=== PATIENT | female | born 1995 | race Caucasian/White ===

== ENCOUNTER → 2016-04-03 | Outpatient (CLI) | payer MEDICAID ==
--- NOTE | 2016-04-03 12:29 | REP ---
Obstetric sonography: History: Supervision of for anatomy. Findings: Scanning through the gravid uterus demonstrates a viable single intrauterine gestation in a cephalic lie. motion is observed and heart rate is recorded at 144 beats per minute. A posterior grade 1 placenta is seen without evidence of previa. Amniotic fluid is subjectively normal. Closed cervical length is 4.6 cm. No extrauterine abnormality is observed. There has been appropriate interval growth. No anomaly is seen. Face and profile and four-chamber heart and left ventricular outflow tract views are less than optimally seen due to position. The following additional anatomic structures are identified and felt to be sonographically unremarkable: cranium, choroid plexus, cavum, cerebellum and posterior fossa, lungs, right ventricular outflow tract view, diaphragm, left-sided stomach, abdominal wall cord insertion, three-vessel umbilical cord, kidneys and bladder, spine, upper and lower extremities. Biometry chart: BPD 4.2 cm 18 weeks 6 days Head circumference 16.1 cm 18 weeks 6 days Abdominal circumference 12.8 cm 18 weeks 3 days Femur length 2.8 cm 18 weeks 4 days Humeral length 2.8 cm 18 weeks 6 days HC/AC ratio normal 1.26. Cephalic index normal 0.72. Estimated weight 245 grams, 0 pounds 8 ounces, 56th percentile for 18 weeks 2 days. Impression: Viable single intrauterine gestation at 18 weeks 5 days by today's composite criteria. Expected gestational age estimate based on prior sonography is 18 weeks 2 days. EWELINA by prior sonography September 02, 2016. Face and profile, four-chamber heart and left ventricular outflow tract views less than optimally seen due to position. Signed by Fabian Wilhelm MD 04/03/2016 02:57 P
== END ==
LOC: M RAD 10:56
PROVIDERS: ATTEND Advanced Practice Midwife
DX: Z36 Encounter for antenatal screening of mother (principal)

== ENCOUNTER → 2016-04-25 | Outpatient (CLI) | payer MEDICAID ==
--- NOTE | 2016-04-25 15:45 | REP ---
Obstetric sonography: History: Supervision of , followup anatomy. Comparison study February 10, 2016. Findings: Scanning through the gravid uterus demonstrates a viable single intrauterine gestation in a breech lie. motion is observed and heart rate is recorded at 153 beats per minute. A posterior grade 0 placenta is seen without evidence of previa or abruption. Amniotic fluid is subjectively normal. Closed cervical length is 3.0 cm, measured transabdominally. No extrauterine abnormality is observed. There has been appropriate interval growth. There is a 4 mm echogenic focus in the right side of the abdomen, in or adjacent to the inferior margin of the liver at the level of the tadeo hepatis. This appears to be separate from the gallbladder. Left and right ventricular cardiac outflow tract views are less than optimally seen due to position. The following additional anatomic structures are identified and felt to be sonographically unremarkable: cranium, choroid plexus, cavum, cerebellum and posterior fossa, face and profile, lungs, four-chamber heart, diaphragm, left-sided stomach, abdominal wall cord insertion, three-vessel umbilical cord, kidneys and bladder, spine, upper and lower extremities. Biometry chart: BPD 4.9 cm = 20 weeks 6 days HC 19.8 cm = 22 weeks 0 days AC 17.5 cm = 22 weeks 3 days FL 3.6 cm = 21 weeks 3 days HL 3.6 cm = 22 weeks 3 days CD 2.2 cm = 20 weeks 4 days HC/AC ratio normal 1.13. Cephalic index 0.67 (0.70-0.86. Estimated weight 466 grams, 1 pound 0 ounces, 65th percentile for 21 weeks 3 days. Impression: Viable single intrauterine gestation at 21 weeks 4 days by today's composite sonographic criteria. Expected gestational age estimate based on prior sonography is 21 weeks 3 days. EWELINA by prior sonography September 02, 2016. There is a 4 mm echogenic focus near the tadeo hepatis in the right upper quadrant of uncertain significance. Consider follow-up. Outflow tract views less than optimally seen due to position. Signed by Fabian Wilhelm MD 04/25/2016 03:59 P
== END ==
LOC: M RAD 12:51
PROVIDERS: ATTEND Advanced Practice Midwife
DX: Z36 Encounter for antenatal screening of mother (principal)

== ENCOUNTER → 2016-05-13 | Outpatient (CLI) | payer MEDICAID ==
--- NOTE | 2016-05-13 15:24 | REP ---
Clinical: Anatomical evaluation. Comparison: 04/25/2016 . Findings: Examination demonstrates a single live intrauterine in breech presentation. motion is identified by technologist. Placenta is noted posteriorly and grade at zero without evidence for placenta previa or abruption. Amniotic fluid volume is normal. Cervix measures the 3.4 cm in length and appears closed. No evidence for nuchal cord. Gestational age by LMP 24 weeks 0 days with EWELINA 09/02/2016 . Gestational age by current measurements 24 weeks 6 days with EWELINA 08/27/2016 . FHR equals 136 beats per minute. Estimated weight 708 grams ( 61st percentile). Current examination demonstrates HC measuring 24.1 cm (>95%). Anatomical assessment demonstrates normal structures including cranium, choroid plexus, cavum, cerebellum/posterior fossa, facial features, lungs, four-chamber heart/ventricular outflow tracts, diaphragm, stomach, cord insertion/three-vessel cord, kidneys/bladder, and extremities. A small 4 mm echogenic focus in the right upper quadrant in the region of the tadeo hepatis is again noted and unchanged. Followup ultrasound may be warranted. No further abnormalities are identified to Impression: 1. Breech presentation demonstrating appropriate interval growth. 2. A 4 mm echogenic focus in the right upper quadrant unchanged without further abnormalities and may benefit from ultrasound. Estimated weight is normal. 3. However the head circumference measures greater than 95th percentile. Signed by Jorge Davies MD 05/13/2016 03:15 P
== END ==
LOC: M RAD 12:57
PROVIDERS: ATTEND Advanced Practice Midwife
DX: Z36 Encounter for antenatal screening of mother (principal)

== ENCOUNTER → 2016-05-29 | Outpatient (CLI) | payer MEDICAID ==
[2016-06-01 00:06] LABS: CYTOMEGALOVIRUS IgG ANTIBODY <0.60 U/mL (0.00-0.59); HSV TYPE I IgM AB <1:10 titer (<1:10); HSV TYPE II IgM ABY <1:10 titer (<1:10); TOXOPLASMA IgG ABY <3.0 IU/mL (0.0-7.1)
== END ==
LOC: M SMT 10:11
PROVIDERS: ATTEND Advanced Practice Midwife
DX: Z34.82 Encounter for supervision of other normal pregnancy, second trimester (principal)

== ENCOUNTER 2017-12-02 15:51 | Emergency (ER) | payer OTHER, MEDICAID ==
[2017-12-02 16:24] LABS: BASO % 0.5 % (0.0-1.0); EOS # 0.3 10^3/uL (0.0-0.50); EOS % 3.6 % (0.0-3.0); HEMATOCRIT 44.4 % (36.0-47.0); HEMOGLOBIN 14.1 g/dl (12.0-15.5); IMMATURE GRANULOCYTE % 0.4 % (0-3.0); LYMPH # 1.5 10^3/uL (1.5-6.5); LYMPH % 19.4 % (24.0-44.0); MEAN CORPUSCULAR HGB CONC 31.8 g/dl (32.0-36.5); MEAN CORPUSCULAR VOLUME 85.1 fl (80.0-96.0); MONO # 0.6 10^3/uL (0.0-0.8); MONO % 8.5 % (0.0-5.0); NEUTROPHILS # 5.1 10^3/uL (1.8-7.7); NEUTROPHILS % 67.6 % (36.0-66.0); PLATELET COUNT, AUTOMATED 246 10^3/uL (150-450); RED BLOOD COUNT 5.22 10^6/uL (4.00-5.40); WHITE BLOOD COUNT 7.5 10^3/uL (4.0-10.0)
[2017-12-02 16:49] LABS: ANION GAP 5 MEQ/L (8-16); BLOOD UREA NITROGEN 12 MG/DL (7-18); CALCIUM LEVEL 9.3 MG/DL (8.5-10.1); CARBON DIOXIDE LEVEL 30 MEQ/L (21-32); CHLORIDE LEVEL 104 MEQ/L (98-107); CREATININE FOR GFR 0.85 MG/DL (0.55-1.30); GLOMERULAR FILTRATION RATE > 60.0 (>60); GLUCOSE, FASTING 85 MG/DL (70-100); POTASSIUM SERUM 3.6 MEQ/L (3.5-5.1); SODIUM LEVEL 139 MEQ/L (136-145)
== END 2017-12-02 17:26 | disposition home or self-care (01) ==
LOC: M ED 15:51
DX: J45.909 Unspecified asthma, uncomplicated (principal); Z88.2 Allergy status to sulfonamides
CPT/HCPCS: 71046

== ENCOUNTER → 2018-06-10 | Outpatient (CLI) | payer OTHER, MEDICAID ==
[~2018-06-10] MED LIST: ZYRT10CA PO
--- NOTE | 2018-06-11 01:05 | ECGEPIP ---
Stationary ECG Study [facility] Test Date: 2018-06-10 Pat Name: ARVIN OROPEZA Department: Room: - Gender: F Garage Hand: LUIS : 1995 Requested By: Cristina Flores Order Number: [id number] Reading MD: Yoseph Rodas Measurements Intervals [place] Rate: 80 P: 32 NV: 169 QRS: 41 QRSD: 95 T: 17 QT: 356 QTc: 411 Interpretive Statements SINUS RHYTHM WITH SINUS ARRHYTHMIA RIGHT VENTRICULAR CONDUCTION DELAY NONSPECIFIC T-WAVE ABNORMALITY COMPARED TO PRIOR TRACING ON 12/02/2017 AT 4:19:33, NO REMARKABLE CHANGES BUT MINIMAL ST-T ABNORMALITY IN THE PRECORDIAL LEADS Electronically Signed On 06-11-2018 1:05:01 EDT by Yoseph Rodas
== END ==
LOC: M EKG 11:41
PROVIDERS: ATTEND Nurse Practitioner Psychiatric/Mental Health
DX: F90.0 Attention-deficit hyperactivity disorder, predominantly inattentive type (principal)

== ENCOUNTER → 2018-06-18 | Outpatient (REF) | payer OTHER, MEDICAID ==
[2018-06-18 18:37] LABS: ALT/SGPT 35 U/L (12-78); BILIRUBIN,TOTAL 0.5 MG/DL (0.2-1.0); BLOOD UREA NITROGEN 16 MG/DL (7-18); CALCIUM LEVEL 8.9 MG/DL (8.5-10.1); CARBON DIOXIDE LEVEL 28 MEQ/L (21-32); CHLORIDE LEVEL 108 MEQ/L (98-107); CHOLESTEROL LEVEL 201 MG/DL (<200); CHOLESTEROL RISK RATIO 3.792 (<5); CREATININE FOR GFR 0.73 MG/DL (0.55-1.30); FREE T4 1.06 NG/DL (0.76-1.46); GLOMERULAR FILTRATION RATE > 60.0 (>60); GLUCOSE, FASTING 79 MG/DL (70-100); HDL CHOLESTEROL 53 MG/DL (>40); LDL CHOLESTEROL 135 MG/DL (<100); NON-HDL-C 148 MG/DL; POTASSIUM SERUM 4.2 MEQ/L (3.5-5.1); SODIUM LEVEL 141 MEQ/L (136-145); TOTAL PROTEIN 7.4 GM/DL (6.4-8.2); TRIGLYCERIDES LEVEL 67 MG/DL (<150)
[2018-06-18 18:39] LABS: TOTAL 25(OH) VITAMIN D 15.5 NG/ML (30.0-100.0)
[2018-06-18 18:59] LABS: HEMOGLOBIN A1c 5.1 %
[2018-06-18 19:08] LABS: BASO % 0.4 % (0.0-1.0); EOS # 0.4 10^3/uL (0.0-0.50); EOS % 5.8 % (0.0-3.0); HEMATOCRIT 41.5 % (36.0-47.0); HEMOGLOBIN 13.2 g/dl (12.0-15.5); LYMPH # 2.8 10^3/uL (1.5-6.5); LYMPH % 37.4 % (24.0-44.0); MEAN CORPUSCULAR HGB CONC 31.8 g/dl (32.0-36.5); MEAN CORPUSCULAR VOLUME 84.9 fl (80.0-96.0); MONO # 0.5 10^3/uL (0.0-0.8); MONO % 6.1 % (0.0-5.0); NEUTROPHILS # 3.7 10^3/uL (1.8-7.7); PLATELET COUNT, AUTOMATED 258 10^3/uL (150-450); RED BLOOD COUNT 4.89 10^6/uL (4.00-5.40); WHITE BLOOD COUNT 7.4 10^3/uL (4.0-10.0)
[2018-06-21 00:08] LABS: Lyme Disease IgG/IgM Antibodie <0.91 ISR (0.00-0.90); Lyme Disease IgM Ab Quantitati <0.80 index (0.00-0.79)
== END ==
LOC: M LAB REF 17:11
PROVIDERS: ATTEND Family Medicine
DX: Z00.01 Encounter for general adult medical examination with abnormal findings (principal); F41.8 Other specified anxiety disorders; Z13.228 Encounter for screening for other metabolic disorders

== ENCOUNTER → 2018-09-25 | Outpatient (REF) | payer OTHER ==
[2018-09-25 13:06] LABS: ALBUMIN 3.9 GM/DL (3.2-5.2); ALT/SGPT 23 U/L (12-78); BILIRUBIN,TOTAL 0.6 MG/DL (0.2-1.0); BLOOD UREA NITROGEN 14 MG/DL (7-18); CALCIUM LEVEL 8.8 MG/DL (8.5-10.1); CARBON DIOXIDE LEVEL 27 MEQ/L (21-32); CHLORIDE LEVEL 107 MEQ/L (98-107); CHOLESTEROL LEVEL 172 MG/DL (<200); CHOLESTEROL RISK RATIO 3.127 (<5); CREATININE FOR GFR 0.92 MG/DL (0.55-1.30); GLOMERULAR FILTRATION RATE > 60.0 (>60); GLUCOSE, FASTING 111 MG/DL (70-100); HDL CHOLESTEROL 55 MG/DL (>40); LDL CHOLESTEROL 104 MG/DL (<100); NON-HDL-C 117 MG/DL; POTASSIUM SERUM 3.9 MEQ/L (3.5-5.1); SODIUM LEVEL 141 MEQ/L (136-145); TOTAL PROTEIN 7.3 GM/DL (6.4-8.2); TRIGLYCERIDES LEVEL 67 MG/DL (<150)
== END ==
LOC: M LAB REF 12:12
PROVIDERS: ATTEND Family Medicine
DX: E78.5 Hyperlipidemia, unspecified (principal)

== ENCOUNTER → 2019-06-03 | Outpatient (REF) | payer OTHER, MEDICAID | LOC: M SFHCLERA 14:18 | PROVIDERS: ATTEND Physician Assistant | DX: J02.9 Acute pharyngitis, unspecified (principal) ==

== ENCOUNTER 2022-06-27 10:47 | Emergency (ER) | payer MEDICAID, OTHER ==
[~2022-06-27] VITALS: Ht 160 cm; Wt 90.3 kg
[2022-06-27] MEDS ORDERED: AMPICILLIN SOD/SULBACTAM SOD 3 GM in D5W MINI-BAG PLUS 100 ML IV ONE (12:30)
[2022-06-27] MEDS ORDERED: KETOROLAC 30 MG/ML 1ML VIAL IV ONE (12:30)
[2022-06-27 13:04] LABS: BASO % 0.4 % (0.0-1.0); EOS # 0.9 10^3/uL (0.0-0.5); EOS % 9.5 % (0.0-3.0); HEMATOCRIT 42.1 % (36.0-47.0); HEMOGLOBIN 13.3 g/dl (12.0-15.5); LYMPH # 1.7 10^3/uL (1.5-5.0); LYMPH % 17.4 % (24.0-44.0); MEAN CORPUSCULAR HEMOGLOBIN 27.6 pg (27.0-33.0); MEAN CORPUSCULAR HGB CONC 31.6 g/dl (32.0-36.5); MEAN CORPUSCULAR VOLUME 87.3 fl (80.0-96.0); MONO # 0.5 10^3/uL (0.0-0.8); MONO % 4.9 % (2.0-8.0); NEUTROPHILS # 6.7 10^3/uL (1.5-8.5); NEUTROPHILS % 67.4 % (36.0-66.0); PLATELET COUNT, AUTOMATED 301 10^3/uL (150-450); RED BLOOD COUNT 4.82 10^6/uL (4.00-5.40); WHITE BLOOD COUNT 9.9 10^3/uL (4.0-10.0)
[2022-06-27] MEDS ORDERED: IBUP80TA PO (13:30)
[2022-06-27] MEDS ORDERED: AMOX875T2 PO (13:30)
[2022-06-27 13:37] LABS: BLOOD UREA NITROGEN 12 MG/DL (9-23); CALCIUM LEVEL 8.8 MG/DL (8.5-10.1); CARBON DIOXIDE LEVEL 29 MMOL/L (20-31); CHLORIDE LEVEL 104 MMOL/L (98-107); CREATININE FOR GFR 0.62 MG/DL (0.55-1.30); GLOMERULAR FILTRATION RATE > 60.0 (>60); GLUCOSE, FASTING 81 MG/DL (60-100); SODIUM LEVEL 139 MMOL/L (136-145)
[2022-06-27 13:44] VITALS: BP 131/78
== END 2022-06-27 13:47 | disposition home or self-care (01) ==
LOC: M ED 10:47
DX: K04.7 Periapical abscess without sinus (principal); K02.9 Dental caries, unspecified; Z88.2 Allergy status to sulfonamides; Z79.899 Other long term (current) drug therapy
CPT/HCPCS: 80048; 85025; 86140; 96365; 96375; 99284; J0295; J1100; J1885

== ENCOUNTER → 2022-07-01 | Outpatient (REF) | payer OTHER ==
[~2022-07-01] MED LIST changes: +AMOX875T2 PO; +CLIN150C17 PO; +DEPO150I12 IM; +IBUP1TAB7 PO; +IBUP80TA PO; +PROB250C PO; +TYLE650T38 PO
[2022-07-01 13:10] LABS: BASO % 0.3 % (0.0-1.0); EOS % 9.3 % (0.0-3.0); HEMATOCRIT 39.4 % (36.0-47.0); HEMOGLOBIN 12.1 g/dl (12.0-15.5); LYMPH % 18.9 % (24.0-44.0); MEAN CORPUSCULAR HEMOGLOBIN 27.3 pg (27.0-33.0); MEAN CORPUSCULAR HGB CONC 30.7 g/dl (32.0-36.5); MEAN CORPUSCULAR VOLUME 88.7 fl (80.0-96.0); MONO # 0.6 10^3/uL (0.0-0.8); MONO % 5.3 % (2.0-8.0); NEUTROPHILS # 6.8 10^3/uL (1.5-8.5); NEUTROPHILS % 65.7 % (36.0-66.0); PLATELET COUNT, AUTOMATED 328 10^3/uL (150-450); RED BLOOD COUNT 4.44 10^6/uL (4.00-5.40); WHITE BLOOD COUNT 10.4 10^3/uL (4.0-10.0)
[2022-07-01 13:16] LABS: ALBUMIN 3.3 G/DL (3.2-5.2); ALKALINE PHOSPHATASE 132 U/L (46-116); ALT/SGPT 40 U/L (7.0-40); AST/SGOT 14 U/L (<34); BILIRUBIN,TOTAL 0.3 MG/DL (0.3-1.2); BLOOD UREA NITROGEN 13 MG/DL (9-23); CALCIUM LEVEL 8.8 MG/DL (8.5-10.1); CARBON DIOXIDE LEVEL 30 MMOL/L (20-31); CHLORIDE LEVEL 105 MMOL/L (98-107); CHOLESTEROL LEVEL 174 MG/DL (<200); CHOLESTEROL RISK RATIO 3.58 (<5); CREATININE FOR GFR 0.62 MG/DL (0.55-1.30); GLOMERULAR FILTRATION RATE > 60.0 (>60); GLUCOSE, FASTING 70 MG/DL (60-100); HDL CHOLESTEROL 48.6 MG/DL (>40); LDL CHOLESTEROL 108.2 MG/DL (<100); NON-HDL-C 125.4 MG/DL; POTASSIUM SERUM 4.3 MMOL/L (3.5-5.1); SODIUM LEVEL 140 MMOL/L (136-145); TOTAL PROTEIN 6.5 G/DL (5.7-8.2); TRIGLYCERIDES LEVEL 86 MG/DL (<150)
[2022-07-01 13:17] LABS: THYROID STIMULATING HORMONE 1.063 uIU/ML (0.55-4.78); TOTAL 25(OH) VITAMIN D 18.6 NG/ML (20.0-100.0)
== END ==
LOC: M LAB REF 12:09
PROVIDERS: ATTEND Nurse Practitioner Family
DX: Z13.228 Encounter for screening for other metabolic disorders (principal)

== ENCOUNTER 2022-07-02 07:20 | Observation (INO) | payer OTHER ==
[~2022-07-02] VITALS: Ht 160 cm; Wt 89.2 kg
[~2022-07-02 07:20] MED LIST changes: -CLIN150C17 PO; -DEPO150I12 IM; -IBUP1TAB7 PO; -PROB250C PO; -TYLE650T38 PO
[2022-07-02] MEDS ORDERED: methylPREDNISolone 125MG 2ML VIAL IV ONE (08:45)
[2022-07-02] MEDS ORDERED: KETOROLAC 30 MG/ML 1ML VIAL IV ONE (08:45)
[2022-07-02] MEDS ORDERED: NS 1,000 ML IV ONE (08:45)
[2022-07-02] MEDS: ENOXAPARIN 40MG/0.4ML SYRINGE (J1650 PER 10MG) SC SCH (09:00)
[2022-07-02] MEDS ORDERED: ISOVUE-370 76% 100ML VIAL As Ordered ONE (09:24)
[2022-07-02 09:29] LABS: BASO # 0.1 10^3/uL (0.0-0.2); BASO % 0.4 % (0.0-1.0); EOS # 0.9 10^3/uL (0.0-0.5); EOS % 7.2 % (0.0-3.0); HEMATOCRIT 36.3 % (36.0-47.0); HEMOGLOBIN 11.4 g/dl (12.0-15.5); LYMPH # 2.1 10^3/uL (1.5-5.0); LYMPH % 18.1 % (24.0-44.0); MEAN CORPUSCULAR HEMOGLOBIN 27.3 pg (27.0-33.0); MEAN CORPUSCULAR HGB CONC 31.4 g/dl (32.0-36.5); MEAN CORPUSCULAR VOLUME 87.1 fl (80.0-96.0); MONO # 0.7 10^3/uL (0.0-0.8); MONO % 5.9 % (2.0-8.0); NEUTROPHILS % 68.1 % (36.0-66.0); PLATELET COUNT, AUTOMATED 299 10^3/uL (150-450); RED BLOOD COUNT 4.17 10^6/uL (4.00-5.40); WHITE BLOOD COUNT 11.8 10^3/uL (4.0-10.0)
[2022-07-02 09:44] LABS: ERYTHROCYTE SEDIMENTATION RATE 56 mm/hr (0-20)
[2022-07-02] MEDS ORDERED: AMPICILLIN SOD/SULBACTAM SOD 3 GM in D5W MINI-BAG PLUS 100 ML IV ONE (12:00)
[2022-07-02] MEDS ORDERED: CHLORASEPTIC SPRAY MT PRN (12:30)
[2022-07-02] MEDS ORDERED: IBUP1TAB7 PO (12:42)
[2022-07-02] MEDS ORDERED: AMOX875T2 PO (12:42)
[2022-07-02] MEDS ORDERED: DEPO150I12 IM (12:42)
[2022-07-02] MEDS ORDERED: HOME MED LIST COMPLETE! XX SCH (12:45)
[2022-07-02 13:02] LABS: RSV AMPLIFICATION NEGATIVE (NEGATIVE)
[2022-07-02 14:02] LABS: MONO REFLEX EBV COMP NEGATIVE (NEGATIVE)
[2022-07-02 14:30] VITALS: BP 133/87
[2022-07-02] MEDS: PANTOPRAZOLE 40MG TAB (PROTONIX) PO SCH (15:06)
[2022-07-02] MEDS: AMPICILLIN SOD/SULBACTAM SOD 3 GM in D5W MINI-BAG PLUS 100 ML IV SCH (16:53)
[2022-07-02 21:15] VITALS: BP 114/75
[2022-07-03] MEDS: AMPICILLIN SOD/SULBACTAM SOD 3 GM in D5W MINI-BAG PLUS 100 ML IV SCH ×5 (00:01→23:46)
[2022-07-03 06:00] VITALS: BP 112/71
[2022-07-03 06:10] LABS: HEMATOCRIT 39.8 % (36.0-47.0); HEMOGLOBIN 12.3 g/dl (12.0-15.5); MEAN CORPUSCULAR HEMOGLOBIN 26.9 pg (27.0-33.0); MEAN CORPUSCULAR HGB CONC 30.9 g/dl (32.0-36.5); MEAN CORPUSCULAR VOLUME 86.9 fl (80.0-96.0); PLATELET COUNT, AUTOMATED 376 10^3/uL (150-450); RED BLOOD COUNT 4.58 10^6/uL (4.00-5.40); WHITE BLOOD COUNT 12.8 10^3/uL (4.0-10.0)
[2022-07-03] MEDS: KETOROLAC 30 MG/ML 1ML VIAL IV PRN ×3 (06:19→22:27)
[2022-07-03 06:34] LABS: BLOOD UREA NITROGEN 14 MG/DL (9-23); CALCIUM LEVEL 8.8 MG/DL (8.5-10.1); CARBON DIOXIDE LEVEL 26 MMOL/L (20-31); CHLORIDE LEVEL 105 MMOL/L (98-107); CREATININE FOR GFR 0.57 MG/DL (0.55-1.30); GLOMERULAR FILTRATION RATE > 60.0 (>60); GLUCOSE, FASTING 109 MG/DL (60-100); POTASSIUM SERUM 4.6 MMOL/L (3.5-5.1); SODIUM LEVEL 139 MMOL/L (136-145)
[2022-07-03] MEDS: ENOXAPARIN 40MG/0.4ML SYRINGE (J1650 PER 10MG) SC SCH (07:34)
[2022-07-03] MEDS: PANTOPRAZOLE 40MG TAB (PROTONIX) PO SCH (07:42)
[2022-07-03 13:09] LABS: EBV VIRAL CAPSID AG IgG >600.0 U/mL (0.0-17.9); EBV VIRAL CAPSID AG IgM <36.0 U/mL (0.0-35.9)
[2022-07-03 14:00] VITALS: BP 112/71
[2022-07-03 20:00] VITALS: BP 119/74
[2022-07-04] MEDS: AMPICILLIN SOD/SULBACTAM SOD 3 GM in D5W MINI-BAG PLUS 100 ML IV SCH ×2 (05:28→11:33)
[2022-07-04 06:00] VITALS: BP 119/77
[2022-07-04 07:17] LABS: BASO % 0.1 % (0.0-1.0); HEMATOCRIT 39.5 % (36.0-47.0); HEMOGLOBIN 12.3 g/dl (12.0-15.5); LYMPH # 1.6 10^3/uL (1.5-5.0); MEAN CORPUSCULAR HEMOGLOBIN 27.3 pg (27.0-33.0); MEAN CORPUSCULAR HGB CONC 31.1 g/dl (32.0-36.5); MEAN CORPUSCULAR VOLUME 87.6 fl (80.0-96.0); MONO # 0.6 10^3/uL (0.0-0.8); MONO % 4.9 % (2.0-8.0); NEUTROPHILS # 10.1 10^3/uL (1.5-8.5); NEUTROPHILS % 81.4 % (36.0-66.0); PLATELET COUNT, AUTOMATED 360 10^3/uL (150-450); RED BLOOD COUNT 4.51 10^6/uL (4.00-5.40); WHITE BLOOD COUNT 12.4 10^3/uL (4.0-10.0)
[2022-07-04 08:01] LABS: BLOOD UREA NITROGEN 22 MG/DL (9-23); CALCIUM LEVEL 8.9 MG/DL (8.5-10.1); CARBON DIOXIDE LEVEL 28 MMOL/L (20-31); CHLORIDE LEVEL 107 MMOL/L (98-107); CREATININE FOR GFR 0.57 MG/DL (0.55-1.30); GLOMERULAR FILTRATION RATE > 60.0 (>60); GLUCOSE, FASTING 117 MG/DL (60-100); POTASSIUM SERUM 4.3 MMOL/L (3.5-5.1); SODIUM LEVEL 140 MMOL/L (136-145)
[2022-07-04] MEDS: ENOXAPARIN 40MG/0.4ML SYRINGE (J1650 PER 10MG) SC SCH (09:00)
[2022-07-04] MEDS ORDERED: PROB250C PO (10:10)
[2022-07-04] MEDS ORDERED: TYLE650T38 PO (10:10)
[2022-07-04] MEDS ORDERED: CLIN150C17 PO (10:10)
[2022-07-04] MEDS: PANTOPRAZOLE 40MG TAB (PROTONIX) PO SCH (10:12)
[2022-07-04] MEDS: KETOROLAC 30 MG/ML 1ML VIAL IV PRN (10:21)
[2022-07-08 00:08] LABS: EBV PCR QUAL WHOLE BLD Positive (Negative)
== END 2022-07-04 12:31 | disposition home or self-care (01) ==
LOC: M ED 07:20 → M ED INP 07:21 → ENRESERV 13:35 → M MSPAV 14:34
PROVIDERS: ADMIT Internal Medicine; ATTEND Internal Medicine
DX: K12.2 Cellulitis and abscess of mouth (principal); D72.829 Elevated white blood cell count, unspecified; Z79.899 Other long term (current) drug therapy; Z88.2 Allergy status to sulfonamides; G43.909 Migraine, unspecified, not intractable, without status migrainosus; E55.9 Vitamin D deficiency, unspecified; F90.9 Attention-deficit hyperactivity disorder, unspecified type; Z86.16 Personal history of COVID-19
CPT/HCPCS: 36415; 70491; 80047; 80048; 83605; 84145; 84702; 85025; 85027; 85652; 86140; 86308; 86664; 86665; 87040; 87430; 87631; 87798; 96365; 96366; 96375; 96376; 99284; J0295; J1885; J2930; Q9967

== ENCOUNTER 2022-07-11 17:36 | Emergency (ER) | payer OTHER ==
[~2022-07-11] VITALS: Ht 160 cm; Wt 88.6 kg
[~2022-07-11 17:36] MED LIST changes: +CLIN150C17 PO; +DEPO150I12 IM; +IBUP1TAB7 PO; +PROB250C PO; +TYLE650T38 PO
[2022-07-11] MEDS ORDERED: ISOVUE-370 76% 100ML VIAL As Ordered ONE (19:25)
[2022-07-11 19:49] LABS: BASO # 0.1 10^3/uL (0.0-0.2); BASO % 0.5 % (0.0-1.0); EOS # 1.1 10^3/uL (0.0-0.5); EOS % 8.7 % (0.0-3.0); HEMATOCRIT 38.7 % (36.0-47.0); HEMOGLOBIN 12.2 g/dl (12.0-15.5); LYMPH # 3.3 10^3/uL (1.5-5.0); LYMPH % 26.9 % (24.0-44.0); MEAN CORPUSCULAR HEMOGLOBIN 27.2 pg (27.0-33.0); MEAN CORPUSCULAR HGB CONC 31.5 g/dl (32.0-36.5); MEAN CORPUSCULAR VOLUME 86.2 fl (80.0-96.0); MONO # 0.7 10^3/uL (0.0-0.8); MONO % 5.8 % (2.0-8.0); NEUTROPHILS % 57.6 % (36.0-66.0); PLATELET COUNT, AUTOMATED 385 10^3/uL (150-450); RED BLOOD COUNT 4.49 10^6/uL (4.00-5.40); WHITE BLOOD COUNT 12.1 10^3/uL (4.0-10.0)
[2022-07-11 21:42] VITALS: BP 129/79
== END 2022-07-11 21:44 | disposition home or self-care (01) ==
LOC: M ED 17:36
DX: K12.2 Cellulitis and abscess of mouth (principal); G43.909 Migraine, unspecified, not intractable, without status migrainosus; E55.9 Vitamin D deficiency, unspecified; F90.9 Attention-deficit hyperactivity disorder, unspecified type; Z88.2 Allergy status to sulfonamides; Z79.1 Long term (current) use of non-steroidal anti-inflammatories (NSAID); Z79.899 Other long term (current) drug therapy; Z79.2 Long term (current) use of antibiotics
CPT/HCPCS: 36415; 70491; 80047; 83605; 85025; 87040; 99283; Q9967

== ENCOUNTER 2023-03-09 16:29 | Emergency (ER) | payer MEDICAID, OTHER ==
[~2023-03-09] VITALS: Ht 160 cm; Wt 95.3 kg
[2023-03-09] MEDS ORDERED: MUCI1TAB16 PO (16:48)
[2023-03-09] MEDS ORDERED: ALBU8.5H (16:48)
[2023-03-09] MEDS ORDERED: ALBUTEROL SULFATE 2.5MG/0.5ML INH NEB SOLN NEB ONE ×3 (17:40→20:00)
[2023-03-09] MEDS ORDERED: methylPREDNISolone 125MG 2ML VIAL IV ONE (17:40)
[2023-03-09 17:58] LABS: BASO # 0.1 10^3/uL (0.0-0.2); BASO % 0.3 % (0.0-1.0); EOS # 0.7 10^3/uL (0.0-0.5); EOS % 4.6 % (0.0-3.0); HEMATOCRIT 44.4 % (36.0-47.0); HEMOGLOBIN 14.1 g/dl (12.0-15.5); LYMPH # 2.1 10^3/uL (1.5-5.0); LYMPH % 13.5 % (24.0-44.0); MEAN CORPUSCULAR HEMOGLOBIN 26.5 pg (27.0-33.0); MEAN CORPUSCULAR HGB CONC 31.8 g/dl (32.0-36.5); MEAN CORPUSCULAR VOLUME 83.5 fl (80.0-96.0); MONO # 0.7 10^3/uL (0.0-0.8); MONO % 4.5 % (2.0-8.0); NEUTROPHILS # 11.8 10^3/uL (1.5-8.5); NEUTROPHILS % 76.6 % (36.0-66.0); PLATELET COUNT, AUTOMATED 365 10^3/uL (150-450); RED BLOOD COUNT 5.32 10^6/uL (4.00-5.40); WHITE BLOOD COUNT 15.4 10^3/uL (4.0-10.0)
[2023-03-09 18:21] LABS: CK-MB VALUE MASS < 1.0 NG/ML (<3.6)
[2023-03-09 18:23] LABS: CPK CREATINE PHOSPHOKINASE 86 U/L (34-145); MB/CK RELATIVE INDEX 1.16 (< OR =4)
[2023-03-09] MEDS ORDERED: LevoFLOXacin 750 MG TABLET PO ONE (20:00)
[2023-03-09] MEDS ORDERED: LevoFLOXacin IV 750 MG in IV 1 EA IV ONE (20:15)
[2023-03-09 21:02] LABS: ABG BASE EXCESS 2.3 (-2.0-2.0); ABG HCO3 25.2 MMOL/L (22.0-26.0); ABG O2 SATURATION 99.2 % (95.0-99.0); ABG PARTIAL PRESSURE CO2 34.1 mmHg (35.0-45.0); ABG PARTIAL PRESSURE O2 164.5 mmHg (75.0-100.0); ABG STANDARD HCO3 26.5 MMOL/L. (22.0-26.0); ABG TOTAL CO2 26.2 MMOL/L (22.0-29.0); ABG pH (ARTERIAL) 7.486 UNITS (7.350-7.450)
[2023-03-09 22:16] VITALS: O2SAT 95
[2023-03-09] MEDS ORDERED: LEVO1TAB40 PO (22:35)
[2023-03-09] MEDS ORDERED: PRED20TA PO (22:35)
[2023-03-09 22:45] VITALS: BP 141/84; TEMP 97.9; O2SAT 95
== END 2023-03-09 22:48 | disposition home or self-care (01) ==
LOC: M ED 16:29
DX: J20.9 Acute bronchitis, unspecified (principal); J45.909 Unspecified asthma, uncomplicated; G43.909 Migraine, unspecified, not intractable, without status migrainosus; F90.9 Attention-deficit hyperactivity disorder, unspecified type; Z88.0 Allergy status to penicillin; Z88.2 Allergy status to sulfonamides; Z79.52 Long term (current) use of systemic steroids; Z79.899 Other long term (current) drug therapy; Z79.1 Long term (current) use of non-steroidal anti-inflammatories (NSAID)
CPT/HCPCS: 36600; 71046; 80047; 82550; 82553; 82803; 83605; 83880; 84702; 85025; 87040; 87486; 87581; 87633; 87798; 93005; 94640; 96365; 96366; 96375; 99284; J1956; J2930

== ENCOUNTER → 2023-06-09 | Outpatient (REF) | payer OTHER ==
[~2023-06-09] MED LIST changes: +ALBU8.5H; +LEVO1TAB40 PO; +MUCI1TAB16 PO; +PRED20TA PO
[2023-06-09 18:28] LABS: CHOLESTEROL RISK RATIO 4.11 (<5)
== END ==
LOC: M LAB REF 17:35
PROVIDERS: ATTEND Nurse Practitioner Family
DX: R79.89 Other specified abnormal findings of blood chemistry (principal)

== ENCOUNTER → 2023-06-10 | Outpatient (CLI) | payer OTHER ==
[~2023-06-10] MED LIST changes: +METHACHOLINE KIT (6 VIAL.NEB PREMIX) INH ONE
== END ==
LOC: M CARPUL 07:37
PROVIDERS: ATTEND Nurse Practitioner Family
DX: R06.02 Shortness of breath (principal)
CPT/HCPCS: 94070; 95070; J7674

== ENCOUNTER → 2023-06-16 | Outpatient (CLI) | payer OTHER ==
[~2023-06-16] MED LIST changes: -METHACHOLINE KIT (6 VIAL.NEB PREMIX) INH ONE
== END ==
LOC: M RAD 08:33
PROVIDERS: ATTEND Nurse Practitioner Family
DX: R06.02 Shortness of breath (principal)

== ENCOUNTER → 2024-04-05 | Outpatient (REF) | payer OTHER | LOC: M LAB REF 12:08 | PROVIDERS: ATTEND Nurse Practitioner Family | DX: J02.9 Acute pharyngitis, unspecified (principal) ==

== ENCOUNTER → 2024-05-12 | Outpatient (REF) | payer OTHER ==
[2024-05-12 15:27] LABS: CHOLESTEROL RISK RATIO 4.57 (<5); HDL CHOLESTEROL 44.6 MG/DL (>40); LDL CHOLESTEROL 142.6 MG/DL (<100); MAGNESIUM LEVEL 2.2 MG/DL (1.8-2.4); NON-HDL-C 159.4 MG/DL
[2024-05-12 15:29] LABS: THYROID STIMULATING HORMONE 1.643 uIU/ML (0.55-4.78)
[2024-05-12 16:15] LABS: HEMOGLOBIN A1c 5.1 % (4.0-6.0)
== END ==
LOC: M LAB REF 13:11
PROVIDERS: ATTEND Nurse Practitioner Family
DX: E66.9 Obesity, unspecified (principal)

== ENCOUNTER → 2024-08-05 | Outpatient (CLI) | payer OTHER | LOC: M PLAIMG 12:58 | PROVIDERS: ATTEND Physician Assistant | DX: R91.8 Other nonspecific abnormal finding of lung field (principal) ==